=== PATIENT | male | born 1970 | race Caucasian/White ===

== ENCOUNTER 2021-04-27 11:03 | Outpatient (CLI) | payer OTHER ==
[~2021-04-27 11:03] MED LIST: LEVSIN0.125 MG PO; PROTONIX20 MG PO; ZANTAC300 MG PO
== END 2021-04-27 11:09 | disposition home or self-care (01) ==
LOC: RAD 11:03
PROVIDERS: ATTEND Orthopaedic Surgery
DX: M25.561 Pain in right knee (principal); M25.562 Pain in left knee